=== PATIENT | male | born 1985 ===

== ENCOUNTER 2017-03-27 13:33 | Outpatient (CLI) | payer MEDICAID ==
--- NOTE | 2017-03-27 14:37 | RAD ---
MODIFIED BARIUM SWALLOW: Date: 03-27-17 Comparison: None. History: Oral phase dysphagia, feeding difficulties. FINDINGS: A modified barium swallow is performed in conjunction with a member of the division of speech patholo gy. The patient was imaged in the lateral projection swallowing various consistencies of barium. No p enetration or aspiration is seen during this exam. IMPRESSION: Unremarkable modified barium swallow. Please see speech pathologist report for full detail and feedin g recommendations. POS: [facility]
== END 2017-03-27 13:34 | disposition home or self-care (01) ==
LOC: RAD 13:33
PROVIDERS: ATTEND Family Medicine
DX: R13.10 Dysphagia, unspecified (principal); R63.3 Feeding difficulties
CPT/HCPCS: 74230; G8996-GN-CK; G8997-GN-CK